=== PATIENT | male | born 1985 | race African-American/Black ===

== ENCOUNTER 2023-03-24 14:27 | Inpatient (IN) | payer OTHER ==
[2023-03-24 15:04] VITALS: BMI 33.3
[2023-03-24] MEDS ORDERED: guaiFENesin 600 MG TABLET.ER (FP) PO PRN (15:41)
[2023-03-24] MEDS ORDERED: LOPERAMIDE HCL 2 MG CAPSULE PO PRN (15:41)
[2023-03-24] MEDS ORDERED: NALOXONE HCL (KLOXXADO) 8 MG SPRAY NS PRN (15:41)
[2023-03-24] MEDS ORDERED: hydrOXYzine PAMOATE 25 MG CAPSULE (FP) PO PRN (15:41)
[2023-03-24] MEDS ORDERED: BENZOCAINE/MENTHOL (CHLORASEPTIC ) LOZENGE MM PRN (15:41)
[2023-03-24] MEDS ORDERED: MAG HYDROX/AL HYDROX/SIMETH 30 ML UNIT-DOSE CUP PO PRN (15:41)
[2023-03-24] MEDS ORDERED: MAGNESIUM HYDROX 2400MG/30ML ORAL SUSPENSION 30 ML CUP PO PRN (15:41)
[2023-03-24] MEDS ORDERED: ACETAMINOPHEN 325 MG TABLET (FP) PO PRN (15:41)
[2023-03-24] MEDS ORDERED: IBUPROFEN 400 MG TABLET (FP) PO PRN (15:41)
[2023-03-24] MEDS ORDERED: NICOTINE POLACRILEX 2 MG GUM BUC PRN (15:41)
[2023-03-24] MEDS ORDERED: NALOXONE HCL 0.4 MG/ML VIAL IM PRN (15:41)
[2023-03-24] MEDS ORDERED: BENZONATATE 200 MG CAPSULE PO PRN (15:41)
[2023-03-24] MEDS ORDERED: POLYETHYLENE GLYCOL (HEALTHYLAX) 3350 17 GM PACKET PO PRN (15:41)
[2023-03-24] MEDS ORDERED: IBUPROFEN 600 MG TABLET (FP) PO PRN (15:41)
[2023-03-24] MEDS: PRENATAL VITAMINS W/ FOLIC ACID TABLET (FP) PO SCH (20:58)
[2023-03-24] MEDS ORDERED: TUBERCULIN PPD 5 TU/0.1ML VIAL ID ONE (20:59)
[2023-03-24] MEDS: TUBERCULIN PPD 5 TU/0.1ML SYRINGE (IN PATIENT USE ONLY) ID ONE (21:23)
[2023-03-24] MEDS: THIAMINE HCL 100 MG TABLET (FP) PO SCH (21:24)
[2023-03-24] MEDS: MELATONIN 5 MG TABLETS PO SCH (21:24)
[2023-03-24] MEDS: ALBUTEROL SO4 HFA INHALER IH PRN (21:35)
[2023-03-25 10:49] LABS: HEMATOCRIT 40.2 % (35.4-49); HEMOGLOBIN 12.8 GM/dL (11.7-16.9); MCH 24.4 pg (25.7-33.7); MCHC 31.9 g/dl (32.0-35.9); MEAN CELL VOLUME 76.3 fl (80-96); MEAN PLT VOLUME 7.8 fl (7.5-11.1); PLATELET COUNT 376 10^3/uL (134-434); RBC 5.26 M/mm3 (4.00-5.60); RDW 14.9 % (11.9-15.9); WHITE BLOOD COUNT 6.3 K/mm3 (4.0-10.0)
[2023-03-25 10:58] LABS: CHLORIDE 107 mmol/L (98-107); POTASSIUM 4.1 mmol/L (3.5-5.1); SODIUM 141 mmol/L (136-145)
[2023-03-25 11:01] LABS: PH,URINE 5.5 (5.0-8.0); URINE APPEARANCE CLEAR; URINE BILIRUBIN NEGATIVE (NEGATIVE); URINE COLOR DK YELLOW; URINE GLUCOSE (UA) NEGATIVE (NEGATIVE); URINE KETONE NEGATIVE (NEGATIVE); URINE LEUK ESTERASE NEGATIVE (NEGATIVE); URINE NITRITE NEGATIVE (NEGATIVE); URINE PROTEIN TRACE (NEGATIVE)
[2023-03-25 11:23] LABS: CALCIUM 8.8 mg/dL (8.5-10.1); GLUCOSE,RANDOM 114 mg/dL (74-106)
[2023-03-25 11:24] LABS: ALBUMIN 3.4 g/dl (3.4-5.0); ANION GAP 7 mmol/L (4-13); CO2 26 mmol/L (21-32)
[2023-03-25 11:26] LABS: SGPT/ALT 39 U/L (13-61)
[2023-03-25 11:27] LABS: CREATININE 0.9 mg/dL (0.55-1.3); SGOT/AST 22 U/L (15-37); SYPHILIS W/ RPR CONF NON-REACTIVE (NONREACTIVE)
[2023-03-25 11:29] LABS: ALK PHOS 72 U/L (45-117); BILIRUBIN,TOTAL 0.3 mg/dL (0.2-1)
[2023-03-25 11:30] LABS: TOT PROT 6.7 g/dl (6.4-8.2)
[2023-03-25] MEDS: PNEUMOC 20-VAL CONJ-DIP CRM/PF 0.5 ML SYRINGE IM ONE (12:55)
[2023-03-25] MEDS: DIVALPROEX SODIUM 500 MG TABLET E.C. PO SCH (13:58)
[2023-03-25] MEDS: OLANZapine 7.5 MG TABLET PO SCH (14:06)
[2023-03-28] MEDS ORDERED: BENZOYL PEROXIDE 5% 60 GM GEL..GRAM. TP PRN (11:10)
[2023-03-28] MEDS: CLINDAMYCIN PHOSPHATE 1% TOPICAL GEL 30 GM TUBE TP SCH (11:51)
[2023-03-29] MEDS ORDERED: COLLOIDAL OATMEAL 1 EACH PACKET TP PRN ×2 (08:40→08:48)
[2023-04-03] MEDS: OLANZapine 5 MG TABLET PO SCH (09:53)
[2023-04-06] MEDS: FERROUS SO4 325 MG TABLET (FP) PO SCH (10:04)
[2023-04-06] MEDS: OLANZapine 7.5 MG TABLET PO SCH (21:29)
[2023-04-21 07:24] VITALS: BP 142/81; PULSE 82; RESP 17; TEMP 97.3
== END 2023-04-21 10:20 | disposition left against medical advice (07) | DRG 770 ==
LOC: YASAS 14:27 → Y3W 19:33
PROVIDERS: ADMIT Allergy & Immunology; ATTEND Psychiatry & Neurology Pain Medicine
PROC: HZ42ZZZ Group Counseling for Substance Abuse Treatment, Cognitive-Behavioral (ICD-10-PCS; principal; 2023-03-24)
DX: F14.20 Cocaine dependence, uncomplicated (principal); F12.20 Cannabis dependence, uncomplicated; F17.210 Nicotine dependence, cigarettes, uncomplicated; F25.9 Schizoaffective disorder, unspecified; F19.282 Other psychoactive substance dependence with psychoactive substance-induced sleep disorder; J45.909 Unspecified asthma, uncomplicated
CPT/HCPCS: 36415; 80053; 80164; 80307; 81003; 83036; 85027; 86780; 86803; 87635; 93005; 93010